=== PATIENT | female | born 1980 | race Caucasian/White ===

== ENCOUNTER → 2022-08-20 | Outpatient (CLI) | payer BC ==
[2022-08-20 19:32] LABS: Basophils % (A) 0 %; Eosinophils # (A) 0.1 k/uL (0-0.7); Eosinophils % (A) 1 %; HCT 41.1 % (34.0-46.0); HGB 13.8 gm/dL (11.4-16.0); Lymphocytes # (A) 1.8 k/uL (1.0-4.8); Lymphocytes % (A) 26 %; MCH 31.3 pg (25.0-35.0); MCHC 33.5 g/dL (31.0-37.0); MCV 93.5 fL (80.0-100.0); Monocytes # (A) 0.4 k/uL (0-1.0); Monocytes % (A) 5 %; Neutrophils # (A) 4.7 k/uL (1.3-7.7); Neutrophils % (A) 66 %; Platelet Count 237 k/uL (150-450); RDW 12.4 % (11.5-15.5); WBC 7.1 k/uL (3.8-10.6)
== END | disposition home or self-care (01) ==
LOC: LABPAT 14:07
PROVIDERS: ATTEND Obstetrics & Gynecology
DX: Z01.812 Encounter for preprocedural laboratory examination (principal); O02.1 Missed abortion; Z3A.00 Weeks of gestation of pregnancy not specified
CPT/HCPCS: 36415; 85025

== ENCOUNTER 2022-08-21 11:23 | Day surgery (SDC) | payer BC ==
[~2022-08-21 11:23] MED LIST: Pre Op ABX Message 1 EACH MISC MISCELLANE ONE
[2022-08-21] MEDS ORDERED: LACTATED RINGERS 1,000 ML IV ONE (12:00)
[2022-08-21] MEDS ORDERED: ONDANSETRON 4 MG/2 ML VIAL ONE (12:11)
[2022-08-21] MEDS ORDERED: DEXAMETHASONE SOD PHOSPHATE 4 MG/ML 1 ML VIAL IVP ONE (12:16)
[2022-08-21] MEDS ORDERED: SCOPOLAMINE 1 MG/72 HR PATCH TRANSDERM ONE (12:18)
[2022-08-21] MEDS ORDERED: KETOROLAC 15 MG/ML 1 ML VIAL ONE (12:56)
[2022-08-21] MEDS ORDERED: LIDOCAINE 2% INJ 20 MG/ML (2 ML VIAL) ONE (12:56)
[2022-08-21] MEDS ORDERED: fentaNYL (PF) 50 MCG/ML 2 ML AMP ONE (12:56)
[2022-08-21] MEDS ORDERED: PROPOFOL 10 MG/ML 20 ML VIAL IV ONE (12:56)
[2022-08-21] MEDS ORDERED: MIDAZOLAM 2 MG/2 ML VIAL ONE (12:56)
[2022-08-21] MEDS ORDERED: DOXYCYCLINE 50 MG CAP PO STA (13:37)
--- NOTE | 2022-08-21 13:39 | P.OP ---
Date of Procedure: 08/21/22 Preoperative Diagnosis: Missed measuring 8 weeks and 0 days Postoperative Diagnosis: Same Procedure(s) Performed: Suction Dilation and Curettage Implants: None Anesthesia: GEORGE Surgeon: Milly Mcallister Estimated Blood Loss (ml): 100 IV fluids (ml): 500 Urine output (ml): 100 Pathology: other (products of conception) Condition: stable Disposition: same day Indications for Procedure: This is a 42 year old with missed measuring 8 weeks and 0 days (15.6 mm CRL) without cardiac activity, consistent with demise. She attempted medical management with two courses of misoprostol without success. On exam in the office yesterday, cervix remained closed, thick, and high. The patient had not passed any products and the decision was made to move forward with surgical mangement. This risks, benefits, and alternatives to suction dilation and curettage were discussed with the patient including risk of bleeding, infection, uterine perforation, and damage to surrounding structures including bladder, bowel, and ureters. The patient understood these risks and desires to proceed with surgery. Operative Findings: On bimanual exam, the patient has approximately 12-week anteverted, mobile uterus with the cervix noted to be closed, long, and high. There was a moderate amount of tissue obtained on the procedure. The patient is Rh positive. Description of Procedure: The patient was taken to the operating room where a general anesthetic was administered. She was then positioned in the dorsal lithotomy position and prepped and draped in the normal sterile fashion. Once the anesthetic was found to be adequate, a bimanual exam was performed under anesthetic. Next, a weighted speculum was placed in the vagina. The anterior lip of cervix was grasped with the tenaculum. The uterus was sounded to 12.5 cm. The cervix was dilated with remigio dilators to accommodate the 8 mm suction curette. The suction curette was connected to the suction and was placed in the cervix and a suction curettage was performed. Two passes were made with the suction curettage. Next, a sharp curettage was performed obtaining a small amount of tissue and this was followed by third suction curettage. After the procedure, the tenaculum was removed. The cervix was hemostatic. The weighted speculum was removed. After the procedure, a second bimanual exam was performed and the patient's uterus had significantly decreased in size.The patient was taken from the operating room in stable condition after she was cleaned. She will be discharged home today and will follow up in the office in 2 weeks.
[2022-08-21 13:48] VITALS: TEMP 97.3
[2022-08-21 13:55] VITALS: RESP 16
[2022-08-21] MEDS ORDERED: SODIUM CHLORIDE 0.9% 1,000 ML IV ONE (14:01)
[2022-08-21 14:21] VITALS: PULSE 79
[2022-08-21 14:47] VITALS: BP 115/79
== END 2022-08-21 14:58 | disposition home or self-care (01) ==
LOC: OR 11:23
PROVIDERS: ATTEND Obstetrics & Gynecology
DX: O02.1 Missed abortion (principal); K21.9 Gastro-esophageal reflux disease without esophagitis; Z98.891 History of uterine scar from previous surgery; Z98.890 Other specified postprocedural states; Z82.49 Family history of ischemic heart disease and other diseases of the circulatory system; Z79.899 Other long term (current) drug therapy
CPT/HCPCS: 86900; 86901; 86850; 59820; J2250; J1100; J2405; J3010; J1885; J2704; J2001